=== PATIENT | female | born 1940 | race Caucasian/White ===

== ENCOUNTER 2024-06-16 18:26 | Inpatient (IN) | payer MEDICARE ==
[2024-06-16 19:40] LABS: #Basophils Less than 0.03 10x3/uL (0.0-0.2); #Eosinophils Less than 0.03 10x3/uL (0.0-0.7); %Basophils 0.2 % (0.0-1.0); %Eosinophils 0.1 % (0.0-10.0); %Monocytes 8.9 % (0.0-10.0); %Neutrophils 80.3 % (42.0-75.0); Hematocrit 27.9 % (36.0-47.0); Hemoglobin 9.8 g/dL (12.0-16.0); Mean Corpuscular HGB CONC 35.1 g/dL (32.0-36.0); Mean Corpuscular Hemoglobin 30.9 pg (27.0-31.0); Mean Platelet Volume 9.5 fL (7.4-10.4); Platelet Count 199 10x3/uL (130-400); Red Blood Cell (RBC) Count 3.17 mill/uL (4.20-5.40)
[2024-06-16 19:59] LABS: ALT (SGPT) 9 U/L (8-55); AST (SGOT) 20 U/L (5-34); Albumin 2.9 g/dL (3.4-4.8); Alkaline Phosphatase 68 U/L (40-110); Anion Gap 13 mmol/L (10-20); BUN (Urea Nitrogen) 13 mg/dL (9.8-20.1); Calc. Creatinine Clearance 0 mL/min (70-130); Calcium 9.5 mg/dL (7.8-10.44); Carbon Dioxide 22 mmol/L (23-31); Chloride 109 mmol/L (98-107); Estimated GFR 78; Globulin 3.8 g/dL (2.4-3.5); Glucose 174 mg/dL (83-110); Potassium 2.9 mmol/L (3.5-5.1); Protein, Total 6.7 g/dL (5.8-8.1); Sodium 141 mmol/L (136-145)
[2024-06-16 20:06] LABS: Troponin I 0.088 ng/mL (< 0.028)
[2024-06-16] MEDS ORDERED: Aspirin Chewable 81 MG TAB ONE (20:50)
[2024-06-16] MEDS ORDERED: Labetalol HCl 100 MG/20 ML VIAL ONE (20:50)
[2024-06-16] MEDS ORDERED: Aspirin 300 MG Suppository ONE (20:59)
[2024-06-16] MEDS ORDERED: Morphine 2 MG/ML VIAL ONE (21:04)
[2024-06-16] MEDS ORDERED: Glucagon 1 MG/ML KIT IM PRN (21:10)
[2024-06-16] MEDS ORDERED: NS 0.9% w/ 20 MEQ KCL 1,000 ML ONE (21:35)
[2024-06-16] MEDS ORDERED: Cefepime 2 GM VIAL ONE (22:08)
[2024-06-16] MEDS ORDERED: Sodium Chloride 0.9% 100 ML ONE (22:08)
[2024-06-16 22:33] LABS: Magnesium 1.7 mg/dL (1.6-2.6)
[2024-06-16 22:45] LABS: Troponin I 0.484 ng/mL (< 0.028)
[2024-06-16 22:56] LABS: Bacteria/HPF 4+ HPF (None Seen); Bilirubin Negative (Negative); Blood, Urine 2+ (Negative); CAUTI Indications for Culture Fever or rigors; Clarity Turbid (Clear); Glucose, Urine (Dipstick) 70 mg/dL (Negative); Ketone, Urine Negative (Negative); Leukocyte 75 Leu/uL (Negative); Nitrite Negative (Negative); Protein, Urine (Dipstick) 600 mg/dL (Neg-Trace); RBC/HPF 0-3 HPF (0-3); Specific Gravity, Urine 1.018 (1.002-1.036); pH, Urine 6.5 (5.0-9.0)
[2024-06-16 23:12] LABS: Squamous Epithelial 0-3 HPF (0-3)
[2024-06-16 23:13] LABS: WBC/HPF 21-50 HPF (0-3)
[2024-06-16 23:15] LABS: Urine Culture Reflex Yes Yes
[2024-06-17 00:01] VITALS: BMI 17.9
[2024-06-17 04:00] LABS: #Basophils Less than 0.03 10x3/uL (0.0-0.2); #Eosinophils Less than 0.03 10x3/uL (0.0-0.7); %Basophils 0.4 % (0.0-1.0); %Eosinophils 0.4 % (0.0-10.0); %Lymphocytes 21.5 % (21.0-51.0); %Monocytes 13.4 % (0.0-10.0); %Neutrophils 63.9 % (42.0-75.0); Hematocrit 23.6 % (36.0-47.0); Mean Corpuscular HGB CONC 33.9 g/dL (32.0-36.0); Mean Corpuscular Hemoglobin 30.5 pg (27.0-31.0); Mean Corpuscular Volume 90.1 fL (78.0-98.0); Mean Platelet Volume 9.4 fL (7.4-10.4); Platelet Count 137 10x3/uL (130-400); RBC Distribution Width 13.1 % (11.5-14.5); Red Blood Cell (RBC) Count 2.62 mill/uL (4.20-5.40)
[2024-06-17 04:20] LABS: Anion Gap 11 mmol/L (10-20); BUN (Urea Nitrogen) 17 mg/dL (9.8-20.1); Calc. Creatinine Clearance 39 mL/min (70-130); Calcium 8.4 mg/dL (7.8-10.44); Carbon Dioxide 22 mmol/L (23-31); Chloride 113 mmol/L (98-107); Estimated GFR 67; Glucose 146 mg/dL (83-110); Potassium 3.2 mmol/L (3.5-5.1); Sodium 143 mmol/L (136-145)
[2024-06-17] MEDS: Enoxaparin 40 MG (0.4 mL) SYRINGE SC SCH (08:49)
[2024-06-17] MEDS: Cefepime 1 GM in Sodium Chloride 0.9% 100 ML IVPB SCH (08:49)
[2024-06-17] MEDS: Atenolol 50 MG TAB PO SCH (09:42)
[2024-06-17] MEDS: Pantoprazole DR 40 MG TAB PO SCH (09:42)
[2024-06-17] MEDS: Aspirin 81 mg Enteric Coated Tablet PO SCH (09:42)
[2024-06-17] MEDS: Amlodipine 5 MG TAB PO SCH (09:42)
[2024-06-17] MEDS: traMADol HCl 50 MG TAB PO PRN (09:43)
[2024-06-17 12:15] LABS: Iron 11 ug/dL (50-170); Iron Binding Capacity, Total 200 mcg/dL (265-497)
[2024-06-17] MEDS: Lisinopril 20 MG TAB PO SCH (12:22)
[2024-06-17 12:51] VITALS: BMI 17.9
[2024-06-17] MEDS: metFORMIN 500 MG TAB PO SCH (16:33)
[2024-06-17] MEDS: Glimepiride 2 MG TAB PO SCH (16:33)
[2024-06-17] MEDS: Sodium Ferric Gluconate 250 MG in Sodium Chloride 0.9% 250 ML 250 ML IVPB SCH (16:49)
[2024-06-17] MEDS: Spironolactone 25 MG TAB PO SCH (17:21)
[2024-06-17] MEDS: Magnesium 2 GM/50 ML(in water) 2 GM in Premix 1 BAG IVPB SCH (17:21)
[2024-06-17] MEDS: Furosemide 20 MG (2 mL) VIAL SLOW IVP SCH (17:21)
[2024-06-17] MEDS: Furosemide 40 MG (4 mL) VIAL ONE (18:20)
[2024-06-17] MEDS: Fenofibrate Nanocrystallized 145 MG TAB PO SCH (20:26)
[2024-06-17] MEDS: Gabapentin 300 MG CAP PO SCH (20:26)
[2024-06-17] MEDS: Atorvastatin Calcium 20 MG TAB PO SCH (20:26)
[2024-06-18 04:08] LABS: #Basophils Less than 0.03 10x3/uL (0.0-0.2); %Basophils 0.2 % (0.0-1.0); %Eosinophils 0.8 % (0.0-10.0); %Lymphocytes 12.5 % (21.0-51.0); %Monocytes 10.2 % (0.0-10.0); %Neutrophils 75.9 % (42.0-75.0); Hematocrit 25.9 % (36.0-47.0); Hemoglobin 8.8 g/dL (12.0-16.0); Mean Corpuscular Hemoglobin 30.4 pg (27.0-31.0); Mean Corpuscular Volume 89.6 fL (78.0-98.0); Mean Platelet Volume 9.9 fL (7.4-10.4); Platelet Count 216 10x3/uL (130-400); Red Blood Cell (RBC) Count 2.89 mill/uL (4.20-5.40)
[2024-06-18 04:48] LABS: Anion Gap 13 mmol/L (10-20); BUN (Urea Nitrogen) 15 mg/dL (9.8-20.1); Calc. Creatinine Clearance 41 mL/min (70-130); Calcium 8.9 mg/dL (7.8-10.44); Carbon Dioxide 21 mmol/L (23-31); Chloride 109 mmol/L (98-107); Estimated GFR 72; Glucose 44 mg/dL (83-110); Potassium 2.7 mmol/L (3.5-5.1); Sodium 140 mmol/L (136-145)
[2024-06-18 04:49] LABS: Troponin I 1.305 ng/mL (< 0.028)
[2024-06-18] MEDS: Lisinopril 20 MG TAB PO SCH (08:14)
[2024-06-18] MEDS: Carvedilol 6.25 MG TAB PO SCH (08:15)
[2024-06-18] MEDS: Potassium Chloride 20 MEQ in Premix 1 BAG IVPB SCH ×2 (10:19→21:13)
[2024-06-18] MEDS: Spironolactone 25 MG TAB PO SCH (10:20)
[2024-06-18] MEDS: Dextrose 50% Abboject 50 ML SYRINGE SLOW IVP PRN (11:24)
[2024-06-18 13:13] LABS: Glucose 108 mg/dL (83-110)
[2024-06-18] MEDS ORDERED: Dextrose 5 %-0.45 % NaCl 1,000 ML IV SCH (16:00)
[2024-06-18] MEDS: Dextrose 5% in Water 1,000 ML IV PRN (16:01)
[2024-06-19] MEDS: hydrALAZINE 25 MG TAB PO PRN (01:04)
[2024-06-19 08:45] LABS: Anion Gap 12 mmol/L (10-20); BUN (Urea Nitrogen) 13 mg/dL (9.8-20.1); Calc. Creatinine Clearance 42 mL/min (70-130); Calcium 9.2 mg/dL (7.8-10.44); Carbon Dioxide 19 mmol/L (23-31); Chloride 106 mmol/L (98-107); Estimated GFR 74; Glucose 100 mg/dL (83-110); Sodium 133 mmol/L (136-145)
[2024-06-19] MEDS: Mirtazapine 15 MG TAB PO SCH (20:52)
[2024-06-20 04:57] LABS: Anion Gap 13 mmol/L (10-20); BUN (Urea Nitrogen) 13 mg/dL (9.8-20.1); Calc. Creatinine Clearance 42 mL/min (70-130); Calcium 9.7 mg/dL (7.8-10.44); Carbon Dioxide 20 mmol/L (23-31); Chloride 110 mmol/L (98-107); Estimated GFR 74; Glucose 131 mg/dL (83-110); Potassium 3.9 mmol/L (3.5-5.1); Sodium 139 mmol/L (136-145)
[2024-06-20] MEDS: hydrALAZINE 20 MG/ML VIAL SLOW IVP PRN (10:19)
[2024-06-20] MEDS: hydrALAZINE 25 MG TAB PO SCH (10:54)
[2024-06-21 06:26] LABS: Bacteria/HPF None Seen HPF (None Seen); Bilirubin Negative (Negative); Blood, Urine Negative (Negative); Clarity Clear (Clear); Glucose, Urine (Dipstick) 50 mg/dL (Negative); Ketone, Urine Negative (Negative); Leukocyte Negative Leu/uL (Negative); Nitrite Negative (Negative); Protein, Urine (Dipstick) 300 mg/dL (Neg-Trace); RBC/HPF 0-3 HPF (0-3); Specific Gravity, Urine 1.004 (1.002-1.036); Squamous Epithelial 0-3 HPF (0-3); Urobilinogen Normal mg/dL (Less than 2); WBC/HPF 0-3 HPF (0-3)
[2024-06-21 09:38] LABS: #Basophils 0.03 10x3/uL (0.0-0.2); #Eosinophils Less than 0.03 10x3/uL (0.0-0.7); %Basophils 0.3 % (0.0-1.0); %Eosinophils 0.2 % (0.0-10.0); %Lymphocytes 12.4 % (21.0-51.0); %Neutrophils 78.8 % (42.0-75.0); Hematocrit 27.7 % (36.0-47.0); Hemoglobin 9.3 g/dL (12.0-16.0); Mean Corpuscular HGB CONC 33.6 g/dL (32.0-36.0); Mean Corpuscular Hemoglobin 30.4 pg (27.0-31.0); Mean Corpuscular Volume 90.5 fL (78.0-98.0); Mean Platelet Volume 9.6 fL (7.4-10.4); Platelet Count 276 10x3/uL (130-400); RBC Distribution Width 13.4 % (11.5-14.5); Red Blood Cell (RBC) Count 3.06 mill/uL (4.20-5.40)
[2024-06-21 10:16] LABS: Anion Gap 14 mmol/L (10-20); BUN (Urea Nitrogen) 31 mg/dL (9.8-20.1); Calc. Creatinine Clearance 36 mL/min (70-130); Calcium 9.5 mg/dL (7.8-10.44); Carbon Dioxide 20 mmol/L (23-31); Chloride 111 mmol/L (98-107); Estimated GFR 61; Glucose 145 mg/dL (83-110); Potassium 3.8 mmol/L (3.5-5.1); Sodium 141 mmol/L (136-145)
[2024-06-22] MEDS: Morphine 2 MG/ML VIAL SLOW IVP PRN (13:08)
[2024-06-22] MEDS ORDERED: Iopamidol 370 76% 100 ML VIAL ONE (15:09)
[2024-06-23] MEDS ORDERED: Ondansetron PF 4 MG/2 ML Vial IVP PRN (12:16)
[2024-06-23] MEDS: hydrALAZINE 25 MG TAB PO SCH (14:05)
[2024-06-23] MEDS: Nitrofurantoin Monohyd/M-Cryst 100 MG CAP PO SCH (14:06)
[2024-06-23] MEDS ORDERED: Dextrose 50% Abboject 50 ML SYRINGE SLOW IVP PRN (15:05)
[2024-06-23] MEDS ORDERED: Dextrose 5% in Water 1,000 ML IV PRN (15:05)
[2024-06-23] MEDS ORDERED: Glucagon 1 MG/ML KIT IM PRN (15:05)
[2024-06-23] MEDS: traMADol HCl 50 MG TAB PO PRN (16:45)
[2024-06-23] MEDS: Carvedilol 6.25 MG TAB PO SCH (16:45)
[2024-06-23] MEDS: Lorazepam 2 MG/ML VIAL SLOW IVP PRN (18:32)
[2024-06-23] MEDS: Enoxaparin 40 MG (0.4 mL) SYRINGE SC SCH (20:28)
[2024-06-23] MEDS: Lisinopril 20 MG TAB PO SCH (20:29)
[2024-06-23] MEDS: Mirtazapine 15 MG TAB PO SCH (20:29)
[2024-06-23] MEDS: Fenofibrate Nanocrystallized 145 MG TAB PO SCH (20:30)
[2024-06-23] MEDS: Atorvastatin Calcium 20 MG TAB PO SCH (20:30)
[2024-06-23] MEDS ORDERED: Nitrofurantoin Monohyd/M-Cryst 100 MG CAP PO SCH (21:00)
[2024-06-24 05:16] LABS: Hematocrit 25.5 % (36.0-47.0); Hemoglobin 8.7 g/dL (12.0-16.0); Mean Corpuscular HGB CONC 34.1 g/dL (32.0-36.0); Mean Corpuscular Volume 87.9 fL (78.0-98.0); Mean Platelet Volume 9.4 fL (7.4-10.4); Platelet Count 184 10x3/uL (130-400); RBC Distribution Width 12.5 % (11.5-14.5)
[2024-06-24 05:41] LABS: Anion Gap 12 mmol/L (10-20); BUN (Urea Nitrogen) 34 mg/dL (9.8-20.1); Calc. Creatinine Clearance 49 mL/min (70-130); Calcium 9.1 mg/dL (7.8-10.44); Carbon Dioxide 23 mmol/L (23-31); Chloride 108 mmol/L (98-107); Estimated GFR 87; Glucose 123 mg/dL (83-110); Potassium 3.2 mmol/L (3.5-5.1); Sodium 140 mmol/L (136-145)
[2024-06-24] MEDS: Potassium Chloride 20 MEQ TAB PO SCH (09:15)
[2024-06-24] MEDS: Pantoprazole DR 40 MG TAB PO SCH (09:15)
[2024-06-24] MEDS: Aspirin 81 mg Enteric Coated Tablet PO SCH (09:15)
[2024-06-24] MEDS: Amlodipine 5 MG TAB PO SCH (09:16)
[2024-06-25] MEDS: Amlodipine 10 MG TAB PO SCH (08:24)
[2024-06-26 05:59] LABS: Hematocrit 28.3 % (36.0-47.0); Hemoglobin 9.6 g/dL (12.0-16.0); Mean Corpuscular HGB CONC 33.9 g/dL (32.0-36.0); Mean Corpuscular Hemoglobin 30.3 pg (27.0-31.0); Mean Corpuscular Volume 89.3 fL (78.0-98.0); Mean Platelet Volume 9.4 fL (7.4-10.4); Platelet Count 249 10x3/uL (130-400); RBC Distribution Width 12.4 % (11.5-14.5); Red Blood Cell (RBC) Count 3.17 mill/uL (4.20-5.40)
[2024-06-26 06:28] LABS: Anion Gap 17 mmol/L (10-20); BUN (Urea Nitrogen) 30 mg/dL (9.8-20.1); Calc. Creatinine Clearance 52 mL/min (70-130); Calcium 9.6 mg/dL (7.8-10.44); Carbon Dioxide 18 mmol/L (23-31); Chloride 108 mmol/L (98-107); Estimated GFR 88; Glucose 97 mg/dL (83-110); Potassium 3.9 mmol/L (3.5-5.1); Sodium 139 mmol/L (136-145)
[2024-06-26] MEDS: Acetaminophen 325 MG TAB PO PRN (21:49)
[2024-06-28] MEDS: Insulin Lispro 100 UNIT/ML 10 ML VIAL SC PRN (11:44)
[2024-06-28] MEDS: Polyethylene Glycol 3350 17 GM Packet PO SCH (11:45)
[2024-06-28] MEDS: Docusate 100 MG CAP PO SCH (11:45)
[2024-06-29 05:49] LABS: Hemoglobin 8.8 g/dL (12.0-16.0); Mean Corpuscular HGB CONC 33.8 g/dL (32.0-36.0); Mean Corpuscular Hemoglobin 29.6 pg (27.0-31.0); Mean Corpuscular Volume 87.5 fL (78.0-98.0); Mean Platelet Volume 9.4 fL (7.4-10.4); Platelet Count 261 10x3/uL (130-400); RBC Distribution Width 12.6 % (11.5-14.5); Red Blood Cell (RBC) Count 2.97 mill/uL (4.20-5.40)
[2024-06-29 06:53] LABS: Anion Gap 13 mmol/L (10-20); BUN (Urea Nitrogen) 34 mg/dL (9.8-20.1); Calc. Creatinine Clearance 33 mL/min (70-130); Calcium 9.3 mg/dL (7.8-10.44); Carbon Dioxide 23 mmol/L (23-31); Chloride 107 mmol/L (98-107); Estimated GFR 55; Glucose 115 mg/dL (83-110); Potassium 3.5 mmol/L (3.5-5.1); Sodium 139 mmol/L (136-145)
[2024-06-29] MEDS: Polyethylene Glycol 3350 17 GM Packet PO PRN (08:23)
[2024-06-29] MEDS: Docusate 100 MG CAP PO PRN (08:24)
[2024-06-30] MEDS: Ferrous Sulfate 325 MG TAB PO SCH (09:58)
[2024-07-04] MEDS ORDERED: CeleCOXIB 100 MG CAP PO PRN (13:48)
[2024-07-05 23:07] VITALS: BP 138/61; TEMP 98.5
== END 2024-07-05 19:44 | DRG 689 ==
LOC: ERS 18:26 → 2NO 21:07 → OBSVTOIN 21:07 → 2NO 22:47 → PCU 06-18 18:13 → T4-A 06-22 21:34
PROVIDERS: ADMIT Internal Medicine; ATTEND Internal Medicine
DX: N39.0 Urinary tract infection, site not specified (principal); G93.41 Metabolic encephalopathy; I50.23 Acute on chronic systolic (congestive) heart failure; I21.A1 Myocardial infarction type 2; E44.0 Moderate protein-calorie malnutrition; I25.10 Atherosclerotic heart disease of native coronary artery without angina pectoris; E87.6 Hypokalemia; Z95.1 Presence of aortocoronary bypass graft; Z79.82 Long term (current) use of aspirin; Z79.899 Other long term (current) drug therapy; I44.7 Left bundle-branch block, unspecified; D50.9 Iron deficiency anemia, unspecified; I11.0 Hypertensive heart disease with heart failure; Z66 Do not resuscitate; E11.649 Type 2 diabetes mellitus with hypoglycemia without coma; Z51.5 Encounter for palliative care; Z79.4 Long term (current) use of insulin
CPT/HCPCS: 36415; 36416; 51701; 70450; 70491; 71045; 72040; 72125; 80048; 80053; 81001; 81003; 81015; 82607; 82728; 83540; 83550; 83605; 83735; 83880; 84484; 85025; 85027; 85046; 87040; 87077; 87086; 87186; 87428; 93005; 93306; 94760; 96365; 96368; 96375; 96376; J0360; J0692; J1650; J1815; J1940; J2060; J2272; J2916; J3475; J3480; J7050; J7070; J7999; Q9967